=== PATIENT | male | born 1975 | race Caucasian/White ===

== ENCOUNTER 2020-08-19 13:33 | Inpatient (IN) | payer OTHER ==
[~2020-08-19] VITALS: Ht 177.8 cm; Wt 136.1 kg
--- NOTE | 2020-08-19 13:55 | NUR ---
SE RECIBE PACIENTE ALERTA, ORIENTADO X 3 ESFERAS REFIERE TENER DOLOR DE ESPALDA TODA LA ESPALDA, DIFICULTAD AL RESPIRAR, PRESENTA TEM. 100.4, SAT.OXI.[id number]%, SE PRESENTA A , EL CUAL INDICA SE UBIQUE EN SECCION K.SE UBICA EN AREA DE SECCION K SE ENTREGA A CHANEL.
== END 2020-09-04 21:57 | disposition designated cancer center or children's hospital (05) | DRG 178 ==
LOC: ER 13:33 → MEDJ 19:25 → SEC-K 19:25 → MEDJ 08-20 10:26
PROVIDERS: ADMIT Internal Medicine; ATTEND Internal Medicine
PROC: BB24ZZZ Computerized Tomography (CT Scan) of Bilateral Lungs (ICD-10-PCS; principal; 2020-08-19)
PROC: 4A033R1 Measurement of Arterial Saturation, Peripheral, Percutaneous Approach (ICD-10-PCS; 2020-08-19)
PROC: 3E0F7GC Introduction of Other Therapeutic Substance into Respiratory Tract, Via Natural or Artificial Opening (ICD-10-PCS; 2020-08-19)
PROC: 02HV33Z Insertion of Infusion Device into Superior Vena Cava, Percutaneous Approach (ICD-10-PCS; 2020-08-20)
PROC: 0W9930Z Drainage of Right Pleural Cavity with Drainage Device, Percutaneous Approach (ICD-10-PCS; 2020-08-21)
PROC: BB24ZZZ Computerized Tomography (CT Scan) of Bilateral Lungs (ICD-10-PCS; 2020-08-31)
DX: J86.0 Pyothorax with fistula (principal); J90 Pleural effusion, not elsewhere classified; B95.4 Other streptococcus as the cause of diseases classified elsewhere; J22 Unspecified acute lower respiratory infection; I10 Essential (primary) hypertension; E66.3 Overweight; Z20.828 Contact with and (suspected) exposure to other viral communicable diseases